=== PATIENT | male | born 1980 | race Caucasian/White ===

== ENCOUNTER 2017-11-29 14:56 | Emergency (ER) | payer OTHER ==
[~2017-11-29] VITALS: Ht 175.3 cm; Wt 74.8 kg
[~2017-11-29 14:56] MED LIST: NOHOMEMEDICATIONS; PERCOCET 5-3251 EACH PO
[2017-11-29] MEDS ORDERED: LORATIDINE 10 M10 M1 PO (15:40)
[2017-11-29] MEDS ORDERED: AFRIN15 ML NS (15:40)
[2017-11-29] MEDS ORDERED: HYDROCORTISONE3011 TOP (15:40)
[2017-11-29] MEDS ORDERED: BACTROBAN CREAM30 G1 TOP (15:40)
[2017-11-29] MEDS ORDERED: KEFLEX500 M1 PO (15:40)
[2017-11-29 15:49] VITALS: BP 127/76
== END 2017-11-29 15:49 | disposition home or self-care (01) ==
LOC: M.ERS 14:56
DX: J32.9 Chronic sinusitis, unspecified (principal); R21 Rash and other nonspecific skin eruption; F17.210 Nicotine dependence, cigarettes, uncomplicated

== ENCOUNTER 2017-12-01 20:43 | Emergency (ER) | payer OTHER ==
[~2017-12-01] VITALS: Ht 175.3 cm; Wt 72.6 kg
[~2017-12-01 20:43] MED LIST changes: +AFRIN15 ML NS; +BACTROBAN CREAM30 G1 TOP; +HYDROCORTISONE3011 TOP; +KEFLEX500 M1 PO; +LORATIDINE 10 M10 M1 PO
[2017-12-01] MEDS ORDERED: DOXYCYCLINE 10100 MG PO (21:13)
[2017-12-01 21:27] VITALS: BP 124/86
== END 2017-12-01 21:29 | disposition home or self-care (01) ==
LOC: M.ERS 20:43
DX: A93.8 Other specified arthropod-borne viral fevers (principal); F17.200 Nicotine dependence, unspecified, uncomplicated